=== PATIENT | female | born 1980 | race Caucasian/White ===

== ENCOUNTER 2017-06-16 20:37 | Emergency (ER) | payer OTHER ==
[~2017-06-16] VITALS: Ht 165.1 cm; Wt 88.9 kg
[2017-06-16] MEDS ORDERED: IBUP1TAB7 PO (20:57)
[2017-06-16] MEDS ORDERED: TYLE500T78 PO (20:57)
[2017-06-16] MEDS ORDERED: ACETAMINOPHEN 325 MG TAB PO ONE (22:45)
[2017-06-16] MEDS ORDERED: ONDANSETRON 4 MG ORAL DISINTEGRATING TAB (S0181) PO ONE (22:45)
[2017-06-16] MEDS ORDERED: ZOFR4TAB3 PO (23:14)
[2017-06-16 23:36] VITALS: BP 131/65
== END 2017-06-16 23:37 | disposition home or self-care (01) ==
LOC: M ED 20:37
DX: S06.0X0A Concussion without loss of consciousness, initial encounter (principal); W20.8XXA Other cause of strike by thrown, projected or falling object, initial encounter; Y92.89 Other specified places as the place of occurrence of the external cause; Y93.89 Activity, other specified; Y99.9 Unspecified external cause status

== ENCOUNTER 2018-10-12 18:44 | Emergency (ER) | payer OTHER ==
[2018-10-12] MEDS: NS 1,000 ML IV (19:46)
[2018-10-12] MEDS: ONDANSETRON 4MG/2ML VIAL (J2405) IV (19:46)
[2018-10-12] MEDS: MORPHINE 4 MG/ML 1ML VIAL/SYRINGE (J2270) IV ×2 (19:46→20:57)
[2018-10-12 19:50] LABS: BASO % 0.3 % (0.0-1.0); EOS # 0.1 10^3/uL (0.0-0.50); EOS % 0.6 % (0.0-3.0); HEMATOCRIT 44.4 % (36.0-47.0); HEMOGLOBIN 15.5 g/dl (12.0-15.5); IMMATURE GRANULOCYTE % 0.4 % (0-3.0); LYMPH # 2.9 10^3/uL (1.5-4.5); LYMPH % 20.1 % (24.0-44.0); MEAN CORPUSCULAR HEMOGLOBIN 32.2 pg (27.0-33.0); MEAN CORPUSCULAR HGB CONC 34.9 g/dl (32.0-36.5); MEAN CORPUSCULAR VOLUME 92.1 fl (80.0-96.0); MONO # 0.9 10^3/uL (0.0-0.8); MONO % 6.1 % (0.0-5.0); NEUTROPHILS # 10.3 10^3/uL (1.8-7.7); NEUTROPHILS % 72.5 % (36.0-66.0); PLATELET COUNT, AUTOMATED 288 10^3/uL (150-450); RED BLOOD COUNT 4.82 10^6/uL (4.00-5.40); RED CELL DISTRIBUTION WIDTH 12.3 % (11.5-14.5); WHITE BLOOD COUNT 14.2 10^3/uL (4.0-10.0)
[2018-10-12 19:57] LABS: CALCIUM OXALATE CRYSTALS RFX LARGE; KETONE, URINE AUTO RFX TRACE mg/dL (NEGATIVE); MUCUS, URINE RFX MODERATE (NEGATIVE); RBC, URINE AUTO RFX 0 /HPF (0-3); SPECIFIC GRAVITY UR AUTO RFX 1.024 (1.002-1.035); SQUAM EPITHELIAL CELL UR AURFX 1 /HPF (0-6)
[2018-10-12 19:58] LABS: LEUKOCYTE ESTERASE UR AUTO RFX 2+ (NEGATIVE); NITRITE, URINE AUTO RFX POSITIVE (NEGATIVE); WBC, URINE AUTO RFX 99 /HPF (0-3)
[2018-10-12 20:13] LABS: CONTROL LINE HCG INT CTR LINE PRESENT; HCG, SERUM QUALITATIVE NEGATIVE (NEGATIVE)
[2018-10-12 20:18] LABS: ALBUMIN 4.5 GM/DL (3.2-5.2); ALBUMIN/GLOBULIN RATIO 1.32 (1.00-1.93); ALKALINE PHOSPHATASE 62 U/L (45-117); ALT/SGPT 56 U/L (12-78); ANION GAP 11 MEQ/L (8-16); AST/SGOT 24 U/L (7-37); BILIRUBIN,DIRECT < 0.1 MG/DL (0.0-0.2); BILIRUBIN,TOTAL 0.3 MG/DL (0.2-1.0); BLOOD UREA NITROGEN 15 MG/DL (7-18); CALCIUM LEVEL 9.3 MG/DL (8.5-10.1); CARBON DIOXIDE LEVEL 21 MEQ/L (21-32); CHLORIDE LEVEL 107 MEQ/L (98-107); CREATININE FOR GFR 0.95 MG/DL (0.55-1.30); GLOMERULAR FILTRATION RATE > 60.0 (>60); GLUCOSE, FASTING 112 MG/DL (70-100); POTASSIUM SERUM 4.2 MEQ/L (3.5-5.1); SODIUM LEVEL 139 MEQ/L (136-145); TOTAL PROTEIN 7.9 GM/DL (6.4-8.2)
[2018-10-12] MEDS: METOCLOPRAMIDE INJ 10MG/2ML VIAL (J2765) IV (20:57)
[2018-10-12] MEDS: CIPROFLOXACIN 400 MG in APPROPRIATE DILUENT 1 EA IV (20:58)
== END 2018-10-12 22:18 | disposition home or self-care (01) ==
LOC: M ED 18:44
DX: N30.00 Acute cystitis without hematuria (principal); N83.201 Unspecified ovarian cyst, right side; N80.9 Endometriosis, unspecified; Z87.42 Personal history of other diseases of the female genital tract; F17.200 Nicotine dependence, unspecified, uncomplicated; Z88.5 Allergy status to narcotic agent; Z79.3 Long term (current) use of hormonal contraceptives
CPT/HCPCS: J2270

== ENCOUNTER 2018-11-07 15:06 | Emergency (ER) | payer OTHER ==
[~2018-11-07] VITALS: Ht 165.1 cm; Wt 86.4 kg
[~2018-11-07 15:06] MED LIST: CIPR-249 PO; IBUP1TAB7 PO; JOLETAB PO; LIDO5DIS41 TD; PYRI1TAB5 PO; TRAM50TA2 PO; TYLE500T78 PO; ZOFR4TAB14 PO
[2018-11-07] MEDS ORDERED: TRAM50TA2 (15:11)
[2018-11-07 15:36] LABS: BASO % 0.2 % (0.0-1.0); EOS # 0.1 10^3/uL (0.0-0.50); EOS % 0.7 % (0.0-3.0); HEMATOCRIT 41.9 % (36.0-47.0); HEMOGLOBIN 14.5 g/dl (12.0-15.5); LYMPH # 2.4 10^3/uL (1.5-4.5); LYMPH % 23.2 % (24.0-44.0); MEAN CORPUSCULAR HEMOGLOBIN 31.5 pg (27.0-33.0); MEAN CORPUSCULAR HGB CONC 34.6 g/dl (32.0-36.5); MEAN CORPUSCULAR VOLUME 91.1 fl (80.0-96.0); MONO # 0.5 10^3/uL (0.0-0.8); MONO % 4.5 % (0.0-5.0); NEUTROPHILS # 7.3 10^3/uL (1.8-7.7); PLATELET COUNT, AUTOMATED 272 10^3/uL (150-450); WHITE BLOOD COUNT 10.2 10^3/uL (4.0-10.0)
[2018-11-07 16:00] LABS: ALBUMIN 3.9 GM/DL (3.2-5.2); BILIRUBIN,DIRECT 0.1 MG/DL (0.0-0.2); BILIRUBIN,TOTAL 0.5 MG/DL (0.2-1.0); CALCIUM LEVEL 8.8 MG/DL (8.5-10.1); CREATININE FOR GFR 1.12 MG/DL (0.55-1.30); POTASSIUM SERUM 3.6 MEQ/L (3.5-5.1); TOTAL PROTEIN 7.1 GM/DL (6.4-8.2)
[2018-11-07] MEDS ORDERED: NS 1,000 ML IV ONE (16:00)
[2018-11-07] MEDS ORDERED: ONDANSETRON 4MG/2ML VIAL (J2405) IV ONE ×2 (16:00→18:15)
[2018-11-07] MEDS ORDERED: KETOROLAC 30 MG/ML VIAL (J1885) IV ONE (16:00)
[2018-11-07 16:05] LABS: URINE PREG TEST NEGATIVE (NEGATIVE)
[2018-11-07] MEDS ORDERED: MORPHINE 4 MG/ML 1ML VIAL/SYRINGE (J2270) IV ONE ×2 (16:30→18:45)
[2018-11-07] MEDS ORDERED: ISOVUE-370 76% 100ML VIAL (Q9967) As Ordered ONE (16:51)
--- NOTE | 2018-11-07 16:51 | REP ---
Clinical: Right upper quadrant pain. Technique: Real time badillo scale ultrasound examination using curved array transducer. Findings: Examination is limited by body habitus and associated technical factors. Fatty infiltration to the liver noted. Limited evaluation of the pancreas is unremarkable. The gallbladder is without gallstones, wall thickening, or pericholecystic fluid. No biliary ductal dilatation is appreciated and the common bile duct measures 4.7 mm diameter. The right kidney is normal in reniform shape without hydronephrosis and measures 11.0 x 4.4 x 5.3 cm. No ascites. Impression: Hepatic steatosis. Electronically Signed by Pal Boston MD 11/07/2018 04:42 P
--- NOTE | 2018-11-07 17:22 | REP ---
Clinical: Right upper quadrant pain. Technique: Axial contrast enhanced images from the lung bases to the pubic symphysis using 100 ml Isovue 370 intravenous contrast material with coronal and sagittal re-formations. Comparison: 06/07/2014. Findings: Lung bases are clear. Liver, spleen, pancreas, gallbladder, bilateral adrenal glands and kidneys are normal for noncontrast evaluation. Mild fatty infiltration to the liver cannot be excluded. The enteric system is without obstruction or acute inflammatory process. The patient is noted to be status post appendectomy. Pelvis demonstrates normal bladder and age-appropriate uterus/left adnexa. 4.5 cm right ovarian cyst is likely physiologic, but possibly related to patient's symptoms. No pelvic fluid or inflammatory stranding. No ascites. No free air. No adenopathy. Abdominal aorta and vasculature without aneurysm or dissection. Musculoskeletal structures without focal osseous abnormality. Impression: 1. 4.5 cm right ovarian cyst possibly related to patient's symptoms. 2. Mild fatty infiltration to the liver. 3. No further acute abdominopelvic pathology appreciated. Electronically Signed by Pal Boston MD 11/07/2018 05:14 P
[2018-11-07] MEDS ORDERED: GI COCKTAIL 50ML BTL(HYOSCYAMINE/MAALOX/LIDOCAINE VISCOUS)(1:3:1) PO ONE (17:45)
[2018-11-07] MEDS ORDERED: PANT40TA3 PO (18:41)
[2018-11-07] MEDS ORDERED: NORCO 5/325MG TABLET (BULK FOR ED) PO ONE (19:00)
[2018-11-07 19:10] VITALS: BP 138/66
== END 2018-11-07 19:14 | disposition home or self-care (01) ==
LOC: M ED 15:06
DX: K21.9 Gastro-esophageal reflux disease without esophagitis (principal); N83.201 Unspecified ovarian cyst, right side; F17.200 Nicotine dependence, unspecified, uncomplicated
CPT/HCPCS: 74177; 76705; 80048; 80076; 81001; 83690; 84703; 85025; 96361; 96374; 96375; 96376; 99284; J1885; J2270; J2405; Q9967

== ENCOUNTER 2018-11-30 19:50 | Emergency (ER) | payer OTHER ==
[~2018-11-30] VITALS: Ht 165.1 cm; Wt 86.4 kg
[2018-11-30 19:50] VITALS: BP 154/75
[~2018-11-30 19:50] MED LIST changes: +PANT40TA3 PO; +TRAM50TA2
[2018-11-30] MEDS ORDERED: NS 1,000 ML IV ONE (21:00)
[2018-11-30] MEDS ORDERED: KETOROLAC 30 MG/ML VIAL (J1885) IV ONE (21:00)
[2018-11-30] MEDS ORDERED: ONDANSETRON 4MG/2ML VIAL (J2405) IV ONE (21:00)
[2018-11-30 21:46] LABS: ALBUMIN 3.9 GM/DL (3.2-5.2); ALT/SGPT 99 U/L (12-78); BILIRUBIN,DIRECT 0.1 MG/DL (0.0-0.2); BILIRUBIN,TOTAL 0.3 MG/DL (0.2-1.0); BLOOD UREA NITROGEN 12 MG/DL (7-18); CALCIUM LEVEL 8.3 MG/DL (8.5-10.1); CARBON DIOXIDE LEVEL 24 MEQ/L (21-32); CHLORIDE LEVEL 109 MEQ/L (98-107); CREATININE FOR GFR 0.86 MG/DL (0.55-1.30); GLOMERULAR FILTRATION RATE > 60.0 (>60); GLUCOSE, FASTING 102 MG/DL (70-100); POTASSIUM SERUM 3.7 MEQ/L (3.5-5.1); SODIUM LEVEL 141 MEQ/L (136-145); TOTAL PROTEIN 6.7 GM/DL (6.4-8.2)
[2018-11-30 21:55] LABS: BASO % 0.2 % (0.0-1.0); EOS % 0.6 % (0.0-3.0); HEMATOCRIT 34.7 % (36.0-47.0); HEMOGLOBIN 11.9 g/dl (12.0-15.5); LYMPH # 1.8 10^3/uL (1.5-4.5); LYMPH % 29.1 % (24.0-44.0); MEAN CORPUSCULAR HEMOGLOBIN 31.5 pg (27.0-33.0); MEAN CORPUSCULAR HGB CONC 34.3 g/dl (32.0-36.5); MEAN CORPUSCULAR VOLUME 91.8 fl (80.0-96.0); MONO # 0.4 10^3/uL (0.0-0.8); MONO % 6.8 % (0.0-5.0); NEUTROPHILS % 62.8 % (36.0-66.0); PLATELET COUNT, AUTOMATED 196 10^3/uL (150-450); RED BLOOD COUNT 3.78 10^6/uL (4.00-5.40); WHITE BLOOD COUNT 6.3 10^3/uL (4.0-10.0)
[2018-11-30] MEDS ORDERED: MORPHINE 4 MG/ML 1ML VIAL/SYRINGE (J2270) IV ONE (22:30)
[2018-11-30] MEDS ORDERED: METOCLOPRAMIDE INJ 10MG/2ML VIAL (J2765) IV ONE (22:30)
--- NOTE | 2018-11-30 22:54 | REPVR ---
EXAM: US Pelvis Complete, Transabdominal and US Pelvis, Transvaginal EXAM DATE/TIME: 11/30/2018 9:43 PM CLINICAL HISTORY: 38 years old, female; Pain; Pelvic pain; Additional info: Left pelvic pain/spotting TECHNIQUE: Real-time transabdominal and transvaginal pelvic ultrasound (complete) with image documentation. Transvaginal imaging was used for better evaluation of the endometrium and adnexa. COMPARISON: US PELVIC NON-OB COMPLETE 10/12/2018 7:58 PM FINDINGS: Uterus/cervix: The uterus measures 7.1 x 4.5 x 5.4 cm. The endometrial stripe measures 1.3 cm, which is mildly thickened. The uterus is retroverted. No uterine mass. Right adnexa: Within the right ovary, there is a 2.9 x 1.9 x 1.6 cm complex/hemorrhagic cyst. Endometrioma is within the differential. This has significantly increased in size compared to the prior study. The right ovary measures 4.4 x 2.8 x 3.1 cm. There is preservation of blood flow within the right ovary. Left adnexa: The left ovary measures 2.9 x 1.9 x 1.6 cm. Hypoechoic follicles are visualized within the left ovary. There is preservation of blood flow within the left ovary. Free fluid: Trace free fluid is visualized within the pelvis. Bladder: Suboptimal evaluation on transabdominal images due to limited filling of the bladder. IMPRESSION: 1. Within the right ovary, there is a 2.9 x 1.9 x 1.6 cm complex/hemorrhagic cyst. Endometrioma is within the differential. This has significantly increased in size compared to the prior study. This can be further evaluated with an MRI of the pelvis with/without contrast. 2. The endometrial stripe measures 1.3 cm, which is mildly thickened. 3. Trace free fluid is visualized within the pelvis. Electronically signed by: Eric Ryan On 11/30/2018 22:53:52 PM
[2018-11-30] MEDS ORDERED: NORCOTAB PO (23:34)
[2018-11-30] MEDS ORDERED: IBUP80TA PO (23:34)
--- NOTE | 2018-12-02 08:19 | ED PDOC ---
Post-Departure Follow-Up pelvic us faxed to [facility] for [facility] Maria E Zuñiga MD Dec 02, 2018 08:19
== END 2018-11-30 23:46 | disposition home or self-care (01) ==
LOC: M ED 19:50
DX: N83.209 Unspecified ovarian cyst, unspecified side (principal)
CPT/HCPCS: 76856; 80048; 80076; 81001; 81025; 85025; 96361; 96374; 96375; 99284; J1885; J2270; J2405; J2765

== ENCOUNTER 2019-01-11 06:07 | Day surgery (SDC) | payer OTHER, MEDICAID ==
[~2019-01-11] VITALS: Ht 165.1 cm; Wt 89.8 kg
[~2019-01-11 06:07] MED LIST changes: +IBUP80TA PO; +MELA10CA PO; +NORCOTAB PO; +ONDA4TAB5 PO
[2019-01-11 06:34] LABS: HEMATOCRIT 41.4 % (36.0-47.0); HEMOGLOBIN 14.2 g/dl (12.0-15.5); MEAN CORPUSCULAR HEMOGLOBIN 31.7 pg (27.0-33.0); MEAN CORPUSCULAR HGB CONC 34.3 g/dl (32.0-36.5); MEAN CORPUSCULAR VOLUME 92.4 fl (80.0-96.0); PLATELET COUNT, AUTOMATED 283 10^3/uL (150-450); RED BLOOD COUNT 4.48 10^6/uL (4.00-5.40); WHITE BLOOD COUNT 9.4 10^3/uL (4.0-10.0)
[2019-01-11] MEDS ORDERED: BUPIVACAINE HCL 0.25% 30 ML VIAL As Ordered ONE (07:07)
[2019-01-11] MEDS ORDERED: LIDOCAINE 2% INJ 100 MG/5 ML SDV (FOR ANES.) As Ordered ONE (07:19)
[2019-01-11] MEDS ORDERED: ROCURONIUM BROMIDE 50 MG/5 ML VIAL As Ordered ONE (07:19)
[2019-01-11] MEDS ORDERED: PROPOFOL 200 MG/20 ML VIAL As Ordered ONE (07:19)
[2019-01-11] MEDS ORDERED: MIDAZOLAM INJ 2 MG/2 ML VIAL (J2250) As Ordered ONE (07:20)
[2019-01-11] MEDS ORDERED: fentaNYL 250 MCG/5 ML INJECTION (J3010) As Ordered ONE (07:20)
[2019-01-11] MEDS ORDERED: dexameTHASONE 4 MG/ML 1ML VIAL (J1100) As Ordered ONE (07:35)
[2019-01-11] MEDS ORDERED: PERCOCET PO (07:58)
[2019-01-11] MEDS ORDERED: HYDROmorphone HCL 2 MG/ML 1ML VIAL (J1170) As Ordered ONE (07:59)
[2019-01-11] MEDS ORDERED: ONDANSETRON 4MG/2ML VIAL (J2405) As Ordered ONE (07:59)
[2019-01-11] MEDS ORDERED: KETOROLAC 60 MG/2 ML VIAL (J1885) As Ordered ONE (07:59)
[2019-01-11] MEDS ORDERED: IBUP1TAB7 PO (07:59)
[2019-01-11] MEDS ORDERED: METOCLOPRAMIDE INJ 10MG/2ML VIAL (J2765) As Ordered ONE (08:00)
[2019-01-11] MEDS ORDERED: GLYCOPYRROLATE INJ 0.2 MG/ML 2 ML VIAL As Ordered ONE (08:27)
[2019-01-11] MEDS ORDERED: NEOSTIGMINE 10 MG/10 ML VIAL (J2710) As Ordered ONE (08:27)
[2019-01-11] MEDS ORDERED: LR 1,000 ML IV SCH (09:15)
[2019-01-11] MEDS ORDERED: fentaNYL 100 MCG/2 ML INJECTION (J3010) IV PRN (09:15)
[2019-01-11] MEDS ORDERED: PERCOCET 5MG/325MG TAB PO PRN (09:15)
[2019-01-11] MEDS ORDERED: ONDANSETRON 4MG/2ML VIAL (J2405) IV PRN (09:15)
[2019-01-11 11:00] VITALS: BP 138/77
--- NOTE | 2019-01-11 12:01 | RO ---
DATE OF PROCEDURE: 01/11/2019 PREOPERATIVE DIAGNOSIS: 1. Ovarian cyst. 2. Chronic pelvic pain. POSTOPERATIVE DIAGNOSIS: 1. Chronic pelvic pain. 2. Endometriosis. PROCEDURE: Diagnostic operative laparoscopy with left salpingo-oophorectomy. SURGEON: Marla Mahan MD MIXER OPERATOR HOT METAL: Tobias Navarrete DO ANESTHESIA: General endotracheal anesthesia. ESTIMATED BLOOD LOSS: 5 mL. INTRAVENOUS FLUIDS: 800 mL of lactated Ringer's solution. URINE OUTPUT: 300 mL. PREOPERATIVE ANTIBIOTICS: None. INFECTION CLASSIFICATION: I. OPERATIVE FINDINGS: Patient with normal appearing bilateral ovaries. There was an area on the left pelvic side wall consistent with endometriosis. This was not removed secondary to proximity of the left ureter. Normal appearing uterus. SPECIMEN: Left fallopian tube and ovary. DESCRIPTION OF OPERATION: After informed consent was obtained and written content was reviewed, the patient was brought to the operating room where general endotracheal anesthesia was obtained. She was then placed in lithotomy position and was prepped and draped in normal sterile fashion. A time out in the operating room was then performed identifying the patient, the procedure to be performed, as well as drug allergies. A bivalved speculum was placed revealing the cervix. The anterior lip of the cervix was grasped with a single tooth tenaculum. The uterus was then sounded to 8 cm. A Hulka tenaculum was then advanced through the cervical os for means to manipulate the uterus. The single tooth tenaculum and speculum was then removed. A Goss catheter was placed and set to gravity. Gloves were changed and attention was turned to the patient's abdomen where 0.25% Marcaine was infused in the umbilical region. This area was incised and an 11 mm trocar and sleeve was advanced through this incision. The laparoscope was replaced revealing intra-abdominal placement. Pneumoperitoneum was then obtained with CO2 gas. Two additional port sites were placed on each side of the umbilicus. These areas were infused with 0.25% Marcaine. Incisions were made in each one of these areas and 5 mm trocars and sleeves were advanced through each one of these incisions under direct visualization. The abdomen was then surveyed with the above noted findings. Next, the left adnexa was placed on traction. The infundibulopelvic ligament was cauterized and ligated using harmonic scalpel James device. There was further dissection along the mesosalpinx to include the fallopian tube, the utero-ovarian ligament as well as the fallopian tube that was transected at the level of the uterus with good hemostasis noted. The specimen was placed in an Endo Catch bag and was brought out through the umbilical port site. The surgical sites were inspected and noted to be hemostatic. The pneumoperitoneum was then released. Instruments were removed from the patient's abdomen and trocars. The umbilical port site fascia was closed with #0 Vicryl. The skin over all three ports sites were closed with #4-0 Monopril and dressed with Dermabond. The Hulka tenaculum was removed. The tenaculum sites were noted to be hemostatic. The Goss catheter was removed. The patient was then taken out of lithotomy position and was awakened from general anesthesia and taken to recovery in stable condition. Counts were correct. Dr. Navarrete, my rn neurosurgical, played an essential role during the operation. He assisted with port placement, tissue retraction and identification, with the laparoscopic salpingo-oophorectomy as well as removal of specimen and wound closure.
[2019-01-11] MEDS ORDERED: KETOROLAC 30 MG/ML VIAL (J1885) IV SCH (14:00)
== END 2019-01-11 11:26 | disposition home or self-care (01) ==
LOC: M SDC 06:07
PROVIDERS: ATTEND Obstetrics & Gynecology
DX: R10.2 Pelvic and perineal pain (principal); N83.202 Unspecified ovarian cyst, left side; N80.0 Endometriosis of uterus; K21.9 Gastro-esophageal reflux disease without esophagitis; F17.210 Nicotine dependence, cigarettes, uncomplicated; Z88.5 Allergy status to narcotic agent; Z79.899 Other long term (current) drug therapy
CPT/HCPCS: 36415; 58661; 85027; 86850; 86900; 86901; 88307; J1100; J1170; J1885; J2250; J2405; J2710; J2765; J3010

== ENCOUNTER 2019-04-12 11:47 | Emergency (ER) | payer OTHER, MEDICAID ==
[~2019-04-12] VITALS: Ht 165.1 cm; Wt 86.4 kg
[~2019-04-12 11:47] MED LIST changes: +HYDR-3715 PO; -NORCOTAB PO; +PERCOCET PO
[2019-04-12 12:34] LABS: BASO % 0.3 % (0.0-1.0); EOS # 0.1 10^3/uL (0.0-0.50); EOS % 0.9 % (0.0-3.0); HEMATOCRIT 40.6 % (36.0-47.0); HEMOGLOBIN 14.2 g/dl (12.0-15.5); LYMPH # 2.2 10^3/uL (1.5-4.5); LYMPH % 32.9 % (24.0-44.0); MEAN CORPUSCULAR HEMOGLOBIN 32.3 pg (27.0-33.0); MEAN CORPUSCULAR VOLUME 92.3 fl (80.0-96.0); MONO # 0.4 10^3/uL (0.0-0.8); MONO % 5.8 % (0.0-5.0); NEUTROPHILS % 59.7 % (36.0-66.0); PLATELET COUNT, AUTOMATED 243 10^3/uL (150-450); WHITE BLOOD COUNT 6.7 10^3/uL (4.0-10.0)
[2019-04-12 12:58] LABS: ALBUMIN 4.3 GM/DL (3.2-5.2); ALT/SGPT 60 U/L (12-78); BILIRUBIN,DIRECT 0.1 MG/DL (0.0-0.2); BILIRUBIN,TOTAL 0.5 MG/DL (0.2-1.0); BLOOD UREA NITROGEN 11 MG/DL (7-18); CALCIUM LEVEL 9.3 MG/DL (8.5-10.1); CARBON DIOXIDE LEVEL 25 MEQ/L (21-32); CHLORIDE LEVEL 106 MEQ/L (98-107); GLOMERULAR FILTRATION RATE > 60.0 (>60); GLUCOSE, FASTING 98 MG/DL (70-100); LIPASE 209 U/L (73-393); SODIUM LEVEL 139 MEQ/L (136-145)
[2019-04-12 13:01] LABS: HCG, SERUM QUALITATIVE NEGATIVE (NEGATIVE)
[2019-04-12] MEDS ORDERED: traMADol 50 MG TAB PO ONE (14:00)
[2019-04-12] MEDS ORDERED: ONDANSETRON 4 MG ORAL DISINTEGRATING TAB (Q0162 PER 1MG) PO ONE (14:45)
[2019-04-12 15:31] VITALS: BP 127/71
--- NOTE | 2019-04-12 15:48 | REP ---
PELVIC ULTRASOUND: Real-time sonographic evaluation of the pelvis performed utilizing transabdominal and endovaginal technique. Bladder measures 5.7 x 5.5 x 6.8 cm. Uterus measures 7.6 x 3.4 x 4.6 cm. Endometrial thickness is 9 mm. Patient has had a prior left oophorectomy. Right ovary is normal in size and echotexture, measuring 3.1 x 2.6 x 2.9 cm. There is no adnexal mass or free fluid. There is no torsion. Subcentimeter nabothian cysts are seen in the region of the cervix. IMPRESSION: Status post left oophorectomy. Normal right ovary with no torsion. No mass or free fluid. Electronically Signed by Gianni Govea MD 04/12/2019 04:00 P
== END 2019-04-12 15:37 | disposition home or self-care (01) ==
LOC: M ED 11:47
DX: N94.0 Mittelschmerz (principal); N80.9 Endometriosis, unspecified; R00.0 Tachycardia, unspecified; Z87.440 Personal history of urinary (tract) infections; Z79.899 Other long term (current) drug therapy
CPT/HCPCS: 36415; 76830; 76856; 80048; 80076; 81001; 83690; 84703; 85025; 87210; 93976; 99284; Q0162

== ENCOUNTER 2019-06-22 00:45 | Emergency (ER) | payer OTHER, MEDICAID ==
[~2019-06-22] VITALS: Ht 165.1 cm; Wt 84.1 kg
[2019-06-22] MEDS ORDERED: ONDANSETRON 4MG/2ML VIAL (J2405) IV ONE ×2 (01:45→03:45)
[2019-06-22] MEDS ORDERED: NS 1,000 ML IV SCH (01:45)
[2019-06-22] MEDS ORDERED: MORPHINE 4 MG/ML 1ML VIAL/SYRINGE (J2270) IV ONE (01:45)
[2019-06-22 01:53] LABS: BASO % 0.3 % (0.0-1.0); EOS # 0.1 10^3/uL (0.0-0.50); EOS % 1.1 % (0.0-3.0); HEMATOCRIT 40.9 % (36.0-47.0); HEMOGLOBIN 14.1 g/dl (12.0-15.5); LYMPH # 3.9 10^3/uL (1.5-4.5); LYMPH % 39.3 % (24.0-44.0); MEAN CORPUSCULAR HEMOGLOBIN 31.3 pg (27.0-33.0); MEAN CORPUSCULAR HGB CONC 34.5 g/dl (32.0-36.5); MEAN CORPUSCULAR VOLUME 90.7 fl (80.0-96.0); MONO # 0.6 10^3/uL (0.0-0.8); MONO % 5.8 % (0.0-5.0); NEUTROPHILS # 5.3 10^3/uL (1.8-7.7); NEUTROPHILS % 53.1 % (36.0-66.0); PLATELET COUNT, AUTOMATED 272 10^3/uL (150-450); RED BLOOD COUNT 4.51 10^6/uL (4.00-5.40)
[2019-06-22 02:15] LABS: ALBUMIN 4.1 GM/DL (3.2-5.2); ALT/SGPT 29 U/L (12-78); BILIRUBIN,DIRECT < 0.1 MG/DL (0.0-0.2); BILIRUBIN,TOTAL 0.5 MG/DL (0.2-1.0); BLOOD UREA NITROGEN 15 MG/DL (7-18); CALCIUM LEVEL 9.6 MG/DL (8.5-10.1); CARBON DIOXIDE LEVEL 24 MEQ/L (21-32); CHLORIDE LEVEL 109 MEQ/L (98-107); CREATININE FOR GFR 0.93 MG/DL (0.55-1.30); GLOMERULAR FILTRATION RATE > 60.0 (>60); GLUCOSE, FASTING 102 MG/DL (70-100); LIPASE 262 U/L (73-393); POTASSIUM SERUM 3.9 MEQ/L (3.5-5.1); SODIUM LEVEL 140 MEQ/L (136-145); TOTAL PROTEIN 7.1 GM/DL (6.4-8.2)
[2019-06-22 02:19] LABS: HCG, SERUM QUALITATIVE NEGATIVE (NEGATIVE)
[2019-06-22] MEDS ORDERED: ISOVUE-370 76% 100ML VIAL (Q9967) As Ordered ONE (02:47)
[2019-06-22] MEDS ORDERED: KETOROLAC 30 MG/ML VIAL (J1885) IV ONE (03:45)
[2019-06-22] MEDS: GASTROGRAFIN SOLUTION 30ML PO SCH ×2 (03:47→04:19)
--- NOTE | 2019-06-22 05:35 | REPVR ---
EXAM: CT Abdomen and Pelvis With Contrast EXAM DATE/TIME: 06/22/2019 2:22 AM CLINICAL HISTORY: 38 years old, female; Abdominal pain; Localized; Left lower quadrant (llq); Additional info: Llq pain TECHNIQUE: Imaging protocol: Axial computed tomography images of the abdomen and pelvis with intravenous contrast. Coronal and sagittal reformatted images were created and reviewed. Radiation optimization: All CT scans at this facility use at least one of these dose optimization techniques: automated exposure control; mA and/or kV adjustment per patient size (includes targeted exams where dose is matched to clinical indication); or iterative reconstruction. Contrast material: ISO;Contrast volume: 100 ml;Contrast route: AC; COMPARISON: CT ABD/PEL W/IV CONTRAST ONLY 11/07/2018 4:50 PM FINDINGS: Liver: The liver attenuation is 85 Hounsfield units and the spleen is 126 Hounsfield units. Gallbladder and bile ducts: Normal. No calcified stones. No ductal dilation. Pancreas: Normal. No ductal dilation. Spleen: Normal. No splenomegaly. Adrenals: Normal. No mass. Kidneys and ureters: Normal. No hydronephrosis. Stomach and bowel: Contraction of the prepyloric gastric antrum. Slight wall and fold thickening of the duodenal sweep. Sutures at the cecal tip consistent with prior appendectomy. Appendix: No evidence of appendicitis. Intraperitoneal space: Normal. No free air. No significant fluid collection. Vasculature: Normal. No abdominal aortic aneurysm. Lymph nodes: Normal. No enlarged lymph nodes. Bladder: Unremarkable as visualized. Reproductive: Tubal ligation clip on the right is again noted. The left is absent. The left ovary and follicle are no longer seen and the right ovary and cyst have resolved or are absent. Bones/joints: No acute fracture. No dislocation. Soft tissues: Minimal fat filled umbilical hernia. IMPRESSION: 1. Interval absence of a tubal ligation clip on the left since 11/07/2018. The ovaries and associated cysts and follicles are no longer seen. 2. Fatty infiltration of the liver. 3. Interval contraction of the prepyloric antrum since the prior study may reflect a fortuitous contraction. Antral gastritis is not excluded. There is suggestion of some fold and wall thickening of the duodenal sweep which may reflect duodenitis or proximal enteritis. 4. Otherwise negative CT abdomen/pelvis. Electronically signed by: Bubba Maldonado On 06/22/2019 05:35:08 AM
[2019-06-22] MEDS ORDERED: TYLETAB14 PO (05:52)
[2019-06-22] MEDS ORDERED: ZOFR4TAB16 PO (05:56)
[2019-06-22] MEDS ORDERED: ACETAMINOPH W/CODEINE #3 TAB UD PO ONE (06:00)
[2019-06-22 06:17] VITALS: BP 129/66
== END 2019-06-22 06:33 | disposition home or self-care (01) ==
LOC: M ED 00:45
DX: R10.32 Left lower quadrant pain (principal); N80.9 Endometriosis, unspecified; R11.0 Nausea; Z79.899 Other long term (current) drug therapy
CPT/HCPCS: 74177; 80048; 80076; 81001; 83690; 84703; 85025; 87086; 96374; 96375; 96376; 99284; J1885; J2270; J2405; Q9963; Q9967

== ENCOUNTER → 2019-12-26 | Outpatient (CLI) | payer OTHER, MEDICAID ==
[~2019-12-26] MED LIST changes: +ACET25TA12 PO; +LIDO5DIS41 TOP; +MELA2.5C3 PO; +ONDA-83 PO; -ONDA4TAB5 PO; +OXYC1TAB23 PO; +TYLETAB14 PO; +ZOFR4TAB16 PO
--- NOTE | 2019-12-26 17:17 | REP ---
Clinical: Abnormal uterine bleeding. Technique: Transabdominal pelvic ultrasound with color Doppler evaluation of the ovaries. Findings: Bladder is normal and measures 10.5 x 8.9 x 5.8 cm. Heterogeneous uterus measures 9.3 x 4.7 x 5.7 cm. Endometrial complex measures 12 mm thickness. No discrete uterine or endometrial abnormality identified. The right ovary is normal in appearance and vascularity without torsion and measures 2.7 x 2.9 x 2.7 cm (RI 0.52). Left ovary not visualized. No pelvic fluid or adnexal mass lesion. Impression: No obvious abnormality.
== END ==
LOC: M WHC 15:40
PROVIDERS: ATTEND Obstetrics & Gynecology
DX: N92.0 Excessive and frequent menstruation with regular cycle (principal)

== ENCOUNTER → 2019-12-26 | Outpatient (CLI) | payer OTHER, MEDICAID ==
[2019-12-26 18:03] LABS: FREE T4 1.08 NG/DL (0.76-1.46); THYROID STIMULATING HORMONE 1.64 uIU/ML (0.358-3.740)
== END ==
LOC: M LAB 16:23
PROVIDERS: ATTEND Obstetrics & Gynecology
DX: N92.0 Excessive and frequent menstruation with regular cycle (principal)

== ENCOUNTER 2020-01-01 08:05 | Day surgery (SDC) | payer OTHER, MEDICAID ==
[~2020-01-01] VITALS: Ht 165.1 cm; Wt 85.9 kg
[2020-01-01] VITALS (8 sets, daily range): BP systolic 117–148; BP diastolic 61–84
[~2020-01-01 08:05] MED LIST changes: +KETOROLAC 60 MG/2 ML VIAL (J1885) As Ordered ONE; +LIDOCAINE 2% INJ 100 MG/5 ML SDV (FOR ANES.) As Ordered ONE; +LR 1,000 ML IV ONE; +ONDANSETRON 4MG/2ML VIAL (J2405) As Ordered ONE; -OXYC1TAB23 PO; +ROCURONIUM BROMIDE 50 MG/5 ML VIAL As Ordered ONE; +dexameTHASONE 4 MG/ML 1ML VIAL (J1100) As Ordered ONE; +propofoL 200 MG/20 ML VIAL As Ordered ONE
[2020-01-01] MEDS ORDERED: OXYC1TAB23 PO (08:44)
[2020-01-01] MEDS ORDERED: ceFAZolin SOD 2 GM in IV 1 EA IV ONE (08:45)
[2020-01-01] MEDS ORDERED: fentaNYL 250 MCG/5 ML INJECTION (J3010) As Ordered ONE (09:31)
[2020-01-01] MEDS ORDERED: MIDAZOLAM INJ 2 MG/2 ML VIAL (J2250) As Ordered ONE (09:32)
[2020-01-01] MEDS ORDERED: METHYLENE BLUE 0.5% (5MG/ML) 10 ML AMP (PROVAYBLUE)(Q9968 PER 1MG) As Ordered ONE (09:34)
[2020-01-01] MEDS ORDERED: BUPIVACAINE HCL 0.25% 30 ML VIAL As Ordered ONE (09:34)
[2020-01-01] MEDS ORDERED: HYDROmorphone HCL 2 MG/ML 1ML VIAL (J1170) As Ordered ONE (10:17)
[2020-01-01] MEDS ORDERED: SUGAMMADEX SODIUM 500 MG/5 ML VIAL (BRIDION) As Ordered ONE (11:20)
[2020-01-01] MEDS ORDERED: ONDANSETRON 4MG/2ML VIAL (J2405) As Ordered ONE (12:03)
[2020-01-01] MEDS ORDERED: oxyCODONE 5MG TAB As Ordered ONE (12:03)
[2020-01-01] MEDS ORDERED: HYDROMORPHONE HCL 0.5 MG/ 0.5 ML SYRINGE (J1170 PER 1) As Ordered ONE ×2 (12:04→12:13)
[2020-01-01] MEDS: HYDROMORPHONE HCL 0.5 MG/ 0.5 ML SYRINGE (J1170 PER 1) IV PRN ×4 (12:05→12:20)
[2020-01-01] MEDS: oxyCODONE 5MG TAB PO PRN ×2 (12:05→12:35)
--- NOTE | 2020-01-01 12:13 | ROOPDOC ---
[facility] Report Of Operation Report of Operation PREPROCEDURE DIAGNOSES: 1. Abnormal uterine bleeding. 2. Chronic pelvic pain. 3. Endometriosis POSTPROCEDURE DIAGNOSES: 1. Abnormal uterine bleeding. 2. Chronic pelvic pain. 3. Endometriosis PROCEDURES PERFORMED: 1. Robotic-assisted laparoscopic hysterectomy. 2. Right salpingectomy. 3. Cystoscopy. SURGEON: Angelica Mahan MD PRODUCER ARBORIST MANAGER: PANDA Grissom ANESTHESIA: General endotracheal anesthesia. ESTIMATED BLOOD LOSS: 50 mL. INTRAVENOUS FLUIDS: 1 L lactated Ringer solution. URINE OUTPUT: 275 mL. PREPROCEDURE ANTIBIOTICS: 2 g of Ancef OPERATIVE FINDINGS:. Normal-appearing uterus, normal-appearing right ovary, surgically removed left ovary consistent with her history. CYSTSCOPIC FIDING: Normal bladder mucosa, no foreign objects. Bilateral ureteral jets were observed. DESCRIPTION OF PROCEDURE: After informed consent was obtained and written consent was reviewed, the patient was brought to the operating room, where general endotracheal anesthesia was obtained. She was then placed in lithotomy position, was prepped and draped in a normal sterile fashion. A time-out in the operating room was then performed, identifying the patient, procedure to be performed, as well as drug allergies. A speculum was then placed, revealing the cervix. The anterior and posterior aspects of the cervix were stitched with a 0 Vicryl. The uterus was then sounded to. 8 cm. A large Luv Rinkare uterine manipulator was then advanced through the cervical os for means to manipulate the uterus. The cervical cap was applied over the cervix, as well as the vaginal sleeve applied into the vagina. The speculum was removed from the patients vagina. A Goss catheter was then placed and set to gravity. Gloves were changed, and attention was turned to the patients abdomen, where a Veress needle was placed through the umbilicus. A pneumoperitoneum was then obtained with CO2 gas. The supraumbilical area was infused with 0.25% Marcaine. An incision was made in this area, and a 8 mm trocar and sleeve was advanced through this incision. The laparoscope was then replaced, revealing intra-abdominal placement. Three additional port sites were placed, two to the left side of the patient's abdomen and one to the right. These areas was infused with 0.25% Marcaine. Each one of these areas, incisions were made, and 8 mm trocars and sleeves advanced through each one of these incisions under direct visualization. Next, the [place] was then docked, utilizing a camera arm and two operative arms. The patient's abdomen was then surveyed with the above-noted finding. Right salpingectomy were then performed. The fallopian tubes' mesosalpinx was cauterized and ligated with hemostasis noted. Next, the uteroovarian ligaments bilateral were cauterized and ligated with good hemostasis noted. The round ligaments bilaterally were cauterized and ligated with good hemostasis noted. The anterior and posterior aspects of broad ligaments were . The anterior leaf of the broad ligament was cauterized and ligated and dissected along the bladder, creating a bladder flap. The remainder of the broad and cardinal ligaments were then cauterized and ligated with good hemostasis noted. The uterine arteries were skeletonized bilaterally and were cauterized and transected with good hemostasis noted. Anterior and posterior colpotomies were made using monopolar scissors. The uterus was then brought out through the vaginal incision. The surgical sites were inspected and noted to be hemostatic. The vaginal cuff was then closed using 2-0 V-Loc system in a running fashion. Lorie was then applied over the surgical field. The pneumoperitoneum was then released. Next, the cystoscopy was then performed. Utilizing a 70-degree cystoscope, it was advanced transurethrally through the bladder. The bladder was surveyed, showing normal bladder mucosa, no foreign bodies. The bilateral ureteral jets were observed. The cystoscope was then removed. The bladder was then drained. Gloves were changed. Attention was then turned to the patients abdomen, where all four port sites were closed with 4-0 Monocryl and dressed with Dermabond. The patient was then taken out of lithotomy position and was awakened from general anesthesia and taken to recovery in stable condition. Counts were correct. Galilea Machado, my collections assistant, played a central role in the operation. She assisted with port placement, tissue retraction and identification, as well as ANGELICA MAHAN MD. Jan 01, 2020 12:13
[2020-01-01] MEDS ORDERED: LR 1,000 ML IV SCH (12:30)
[2020-01-01] MEDS ORDERED: fentaNYL 100 MCG/2 ML INJECTION (J3010) IV PRN (12:30)
[2020-01-01] MEDS ORDERED: ONDANSETRON 4MG/2ML VIAL (J2405) IV PRN (12:30)
[2020-01-01] MEDS ORDERED: METOCLOPRAMIDE INJ 10MG/2ML VIAL (J2765) IV PRN (12:30)
[2020-01-01] MEDS ORDERED: PERCOCET 5MG/325MG TAB PO PRN (12:45)
[2020-01-01] MEDS ORDERED: PROMETHAZINE INJ 25 MG/ML VIAL (J2550) IV PRN (12:45)
[2020-01-01] MEDS: LR 1,000 ML IV SCH ×2 (13:15→17:37)
[2020-01-01] MEDS: MORPHINE 4 MG/ML 1ML VIAL/SYRINGE (J2270) IV PRN ×2 (15:31→20:00)
[2020-01-01] MEDS: KETOROLAC 30 MG/ML VIAL (J1885) IV SCH ×2 (17:35→23:23)
[2020-01-01] MEDS: PERCOCET 5MG/325MG TAB PO PRN ×2 (17:36→23:23)
[2020-01-02] VITALS: BP 116/56
[2020-01-02] MEDS: MORPHINE 4 MG/ML 1ML VIAL/SYRINGE (J2270) IV PRN (01:09)
[2020-01-02 04:00] VITALS: BP 112/68
[2020-01-02] MEDS: PERCOCET 5MG/325MG TAB PO PRN ×3 (04:28→12:41)
[2020-01-02] MEDS: LR 1,000 ML IV SCH (04:30)
[2020-01-02] MEDS: KETOROLAC 30 MG/ML VIAL (J1885) IV SCH ×2 (06:18→12:10)
[2020-01-02 06:49] LABS: HEMATOCRIT 33.7 % (36.0-47.0); HEMOGLOBIN 11.4 g/dl (12.0-15.5); MEAN CORPUSCULAR HEMOGLOBIN 30.9 pg (27.0-33.0); MEAN CORPUSCULAR HGB CONC 33.8 g/dl (32.0-36.5); MEAN CORPUSCULAR VOLUME 91.3 fl (80.0-96.0); PLATELET COUNT, AUTOMATED 251 10^3/uL (150-450); RED BLOOD COUNT 3.69 10^6/uL (4.00-5.40); WHITE BLOOD COUNT 11.2 10^3/uL (4.0-10.0)
[2020-01-02] MEDS ORDERED: ZOFR4TAB16 PO (07:59)
[2020-01-02 08:00] VITALS: BP 127/79
[2020-01-02] MEDS ORDERED: ONDANSETRON 4MG/2ML VIAL (J2405) IV ONE (08:15)
[2020-01-02 12:00] VITALS: BP 124/69
== END 2020-01-02 09:45 | disposition home or self-care (01) ==
LOC: M SDC 08:05 → M PED 13:15 → M SDC 01-02 09:45
PROVIDERS: ATTEND Obstetrics & Gynecology
DX: N93.9 Abnormal uterine and vaginal bleeding, unspecified (principal); R10.2 Pelvic and perineal pain; N80.0 Endometriosis of uterus; K21.9 Gastro-esophageal reflux disease without esophagitis; Z79.899 Other long term (current) drug therapy; F17.218 Nicotine dependence, cigarettes, with other nicotine-induced disorders
CPT/HCPCS: 36415; 58571; 85027; 86850; 86900; 86901; 88307; 96374; 96375; 96376; J0690; J1100; J1170; J1885; J2250; J2270; J2405; J3010; Q9968

== ENCOUNTER 2020-08-15 09:07 | Emergency (ER) | payer OTHER, MEDICAID ==
[~2020-08-15] VITALS: Ht 165.1 cm; Wt 87.5 kg
[2020-08-15 09:07] VITALS: BP 119/79
[~2020-08-15 09:07] MED LIST changes: -KETOROLAC 60 MG/2 ML VIAL (J1885) As Ordered ONE; -LIDOCAINE 2% INJ 100 MG/5 ML SDV (FOR ANES.) As Ordered ONE; -LR 1,000 ML IV ONE; -ONDANSETRON 4MG/2ML VIAL (J2405) As Ordered ONE; +OXYC1TAB23 PO; +PANT40TA29 PO; -PANT40TA3 PO; +PERC5TAB12 PO; -ROCURONIUM BROMIDE 50 MG/5 ML VIAL As Ordered ONE; -dexameTHASONE 4 MG/ML 1ML VIAL (J1100) As Ordered ONE; -propofoL 200 MG/20 ML VIAL As Ordered ONE
[2020-08-15] MEDS ORDERED: OMEP-218 PO (09:13)
[2020-08-15] MEDS ORDERED: AMPH1CAP14 PO (09:13)
--- NOTE | 2020-08-15 09:48 | REPVR ---
PROCEDURE INFORMATION: Exam: XR Left Ankle Exam date and time: 08/15/2020 9:38 AM Age: 39 years old Clinical indication: Injury or trauma; Fall; Blunt trauma; Ankle; Left TECHNIQUE: Imaging protocol: XR Left ankle. Views: 3 or more views. COMPARISON: No relevant prior studies available. FINDINGS: Bones/joints: Area of sclerosis distal diaphysis of the tibia may reflect benign bone island. No acute fracture. Subtle or questionable periosteal elevation of the distal fibula metaphysis laterally which could reflect normal appearance or subtle underlying traumatic injury. Calcaneal spur. Developmental variant of the dorsal navicular bone. Soft tissues: Normal. IMPRESSION: Minor periosteal elevation of the distal fibula metaphysis laterally probably reflecting normal appearance for this patient likely nontraumatic. Follow-up to assess for reparative process could be ascertained in 7-10 days with conservative treatment depending on the mechanism of injury and specific location of discomfort. Electronically signed by: Kaylah Moser On 08/15/2020 09:47:59 AM
--- NOTE | 2020-08-15 09:49 | REPVR ---
PROCEDURE INFORMATION: Exam: XR Left Knee Exam date and time: 08/15/2020 9:38 AM Age: 39 years old Clinical indication: Injury or trauma; Fall; Blunt trauma; Knee; Left TECHNIQUE: Imaging protocol: XR Left knee. Views: 4 or more views. COMPARISON: No relevant prior studies available. FINDINGS: Bones/joints: Normal. Soft tissues: Normal. IMPRESSION: No acute findings. Electronically signed by: Kaylah Moser On 08/15/2020 09:49:10 AM
[2020-08-15] MEDS ORDERED: KETO10TAB PO (10:28)
[2020-08-15] MEDS ORDERED: KETOROLAC 60MG 2ML VIAL IM ONE (10:30)
--- NOTE | 2020-08-16 09:59 | ED PDOC ---
Post-Departure Follow-Up left ankle xray faxed to [facility] for fu Maria E Zuñiga MD Aug 16, 2020 09:59
== END 2020-08-15 11:00 | disposition home or self-care (01) ==
LOC: M ED 09:07
DX: S93.402A Sprain of unspecified ligament of left ankle, initial encounter (principal); S80.02XA Contusion of left knee, initial encounter; W10.8XXA Fall (on) (from) other stairs and steps, initial encounter; Y92.019 Unspecified place in single-family (private) house as the place of occurrence of the external cause; Y99.9 Unspecified external cause status; N80.9 Endometriosis, unspecified; F90.9 Attention-deficit hyperactivity disorder, unspecified type; F17.200 Nicotine dependence, unspecified, uncomplicated; Z79.899 Other long term (current) drug therapy
CPT/HCPCS: 73564; 73610; 96372; 99284; J1885

== ENCOUNTER → 2020-08-22 | Outpatient (CLI) | payer OTHER, MEDICAID ==
[~2020-08-22] MED LIST changes: +AMPH1CAP14 PO; +KETO10TAB PO; +OMEP-218 PO
--- NOTE | 2020-08-27 07:56 | REP ---
PELVIC ULTRASOUND HISTORY: Pelvic pain. TECHNIQUE: Real-time sonographic evaluation of the pelvis is performed utilizing transabdominal technique. FINDINGS: Patient reportedly has had a hysterectomy and left salpingo-oophorectomy. Urinary bladder measures 10.3 x 9.1 x 7.5 cm. Right ovary is visualized and appears normal in size and echotexture, measuring 2.4 x 3.3 x 2.4 cm. No mass or free fluid is seen in the pelvis. There is no evidence of right ovarian torsion with duplex Doppler evaluation. IMPRESSION: No evidence of pelvic mass or free fluid. Normal appearing right ovary. MTDD
== END ==
LOC: M WHC 12:41
PROVIDERS: ATTEND Obstetrics & Gynecology
DX: R10.2 Pelvic and perineal pain (principal); Z90.79 Acquired absence of other genital organ(s)

== ENCOUNTER → 2025-04-04 | Outpatient (CLI) | payer OTHER, MEDICAID ==
[~2025-04-04] MED LIST changes: +LIDO1ADH93 TD; +LIDO1ADH93 TOP; -LIDO5DIS41 TD; -LIDO5DIS41 TOP; -MELA2.5C3 PO; +MELA2.5C4 PO; +OMEP-173 PO; -OMEP-218 PO
== END ==
LOC: M OUTALCOH 08:03
PROVIDERS: ATTEND Psychiatry & Neurology Psychiatry
DX: Z03.89 Encounter for observation for other suspected diseases and conditions ruled out (principal); F17.200 Nicotine dependence, unspecified, uncomplicated